=== PATIENT | female | born 1990 | race Caucasian/White ===

== ENCOUNTER 2024-05-11 09:27 | Outpatient (REF) | payer OTHER, SELFPAY ==
[2024-05-11 11:19] LABS: Anion Gap 10 (12-20); Blood Urea Nitrogen 11 mg/dL (9-16); C Reactive Protein 0.26 mg/dL (< or = 0.50); Carbon Dioxide 29 mmol/L (22-29); Chloride 104 mmol/L (96-108); Estimated Glomerular Filt Rate > 60; Glucose Random 83 mg/dL (60-115); Potassium 4.5 mmol/L (3.3-5.1); Sodium 138 mmol/L (135-145)
[2024-05-11 11:22] LABS: TSH reflex Free T4 0.88 uIU/mL (0.32-4.0)
[2024-05-11 11:23] LABS: Rheumatoid Factor < 13.0 IU/mL (<15.0)
[2024-05-11 11:35] LABS: Erythrocyte Sedimentation Rate 12 MM/HR (0-20)
[2024-05-17 09:13] LABS: Anti Nuclear Antibody Screen NEGATIVE (NEGATIVE)
== END 2024-05-11 09:28 | disposition home or self-care (01) ==
LOC: HO.LAB 09:27
PROVIDERS: PCP Internal Medicine; Visit Provider Psychiatry & Neurology Neurology
DX: M60 Myositis (principal)
CPT/HCPCS: 36415; 80048; 82550; 84443; 85652; 86038; 86140; 86431